=== PATIENT | female | born 1995 ===

== ENCOUNTER 2017-03-13 09:56 | Emergency (ER) | payer SELFPAY ==
[2017-03-13 10:22] VITALS: BP 120/67; PULSE 110; RESP 16; TEMP 99.5; O2SAT 100
--- NOTE | 2017-03-13 10:36 | ED PDOC ---
HPI: General Adult Chief Complaint (Provider): flu like symptoms, syncope History Per: Patient History/Exam Limitations: no limitations Onset/Duration Of Symptoms: Days (1) Current Symptoms Are (Timing): Still Present Severity: Moderate <Aleksandr Gomez III - Last Filed: 03/13/17 10:42> <Teresa Delacruz - Last Filed: 03/15/17 13:54> Time Seen by Provider: 03/13/17 10:11 Chief Complaint (Nursing): Syncope Additional Complaint(s): 21yo female c/o flu like symptoms including sore throat, headache, body pains and mild cough. Also states she "passed out" this morning due to the fever. Notes mild left chest pain when breathes deeply, mild cough, no hemoptysis, no edema, no leg pain, no SOB. (Aleksandr Gomez III) Past Medical History Reviewed: Historical Data, Nursing Documentation, Vital Signs - Medical History PMH: No Chronic Diseases - Surgical History Other surgeries: rhinoplasty - Family History Family History: States: Unknown Family Hx - Social History Current smoker - smoking cessation education provided: No <Aleksandr Gomez III - Last Filed: 03/13/17 10:42> <Teresa Delacruz - Last Filed: 03/15/17 13:54> Vital Signs: Last Vital Signs Temp 99.5 F 03/13/17 10:20 Pulse 110 H 03/13/17 10:20 Resp 16 03/13/17 10:20 BP 120/67 03/13/17 10:20 Pulse Ox 100 03/13/17 10:43 - Home Medications Home Medications: Ambulatory Orders Medication Instructions Recorded Ciprofloxacin [Cipro] 500 mg PO BID #14 tab 03/13/17 Ibuprofen [Motrin Tab] 600 mg PO Q6 PRN #15 tab 03/13/17 - Allergies Allergies/Adverse Reactions: Allergies Allergy/AdvReac Type Severity Reaction Status Date / Time No Known Allergies Allergy Verified 03/13/17 10:20 Review of Systems Review Of Systems: ROS cannot be obtained secondary to pt's inabilty to answer questions. Constitutional: Positive for: Chills, Malaise ENT: Positive for: Throat Pain. Negative for: Ear Discharge, Throat Swelling Cardiovascular: Positive for: Chest Pain. Negative for: Palpitations, Orthopnea Respiratory: Positive for: Cough. Negative for: Shortness of Breath, Hemoptysis Gastrointestinal: Positive for: Nausea. Negative for: Vomiting, Abdominal Pain , Diarrhea Genitourinary Female: Negative for: Dysuria, Hematuria Musculoskeletal: Positive for: Other (+body aches). Negative for: Neck Pain, Back Pain Skin: Negative for: Rash, Lesions, Jaundice Neurological: Positive for: Headache, Dizziness. Negative for: Weakness, Numbness Psych: Negative for: Anxiety <Aleksandr Gomez III - Last Filed: 03/13/17 10:42> Physical Exam - Reviewed Nursing Documentation Reviewed: Yes Vital Signs Reviewed: Yes - Physical Exam Appears: Positive for: Well, Non-toxic, No Acute Distress Head Exam: Positive for: ATRAUMATIC, NORMAL INSPECTION, NORMOCEPHALIC Skin: Positive for: Normal Color, Warm, DRY Eye Exam: Positive for: EOMI, Normal appearance, PERRL ENT: Positive for: TM Is/Are (unremarkable b/l), Pharyngeal Erythema. Negative for: Tonsillar Swelling Neck: Positive for: Normal, Painless ROM Cardiovascular/Chest: Positive for: Regular Rate, Rhythm Respiratory: Positive for: Normal Breath Sounds. Negative for: Wheezing, Respiratory Distress Gastrointestinal/Abdominal: Positive for: Bowel Sounds, Soft. Negative for: Tenderness, Guarding Back: Positive for: Normal Inspection. Negative for: L CVA Tenderness, R CVA Tenderness Extremity: Positive for: Normal ROM Neurologic/Psych: Positive for: Alert, Oriented. Negative for: Motor/Sensory Deficits <Aleksandr Gomez III - Last Filed: 03/13/17 10:42> - ECG O2 Sat by Pulse Oximetry: 100 <Aleksandr Gomez III - Last Filed: 03/13/17 10:42> - Laboratory Results Result Diagrams: 03/13/17 12:57 03/13/17 12:57 <Teresa Delacruz - Last Filed: 03/15/17 13:54> Medical Decision Making <Aleksandr Gomez III - Last Filed: 03/13/17 10:42> <Teresa Delacruz - Last Filed: 03/15/17 13:54> Medical Decision Making: Urine culture positive for lactobacillus with no sensitivity resulted. Patient was sent home on Cipro and given IV rocephin in ED. I spoke directly with patient who states she is feeling much better. I advised patient to follow up with primary doctor after completion of antibiotic course to have urine culture repeated to determine if infection has resolved. Patient verbalized understanding of the need for close follow up. All questions answered. (Teresa Delacruz) Disposition <Aleksandr Gomez III - Last Filed: 03/13/17 10:42> <Teresa Delacruz - Last Filed: 03/15/17 13:54> - Clinical Impression Clinical Impression: UTI (urinary tract infection) - Disposition Referrals: [facility] [Outside] Condition: STABLE Additional Instructions: Drink plenty of fluids, return to ER for any new or worsening symptoms. Prescriptions: Ciprofloxacin [Cipro] 500 mg PO BID #14 tab Ibuprofen [Motrin Tab] 600 mg PO Q6 PRN #15 tab PRN Reason: Pain, Moderate (4-7) Instructions: Urinary Tract Infection in Women (ED) Forms: [facility] School/Work Excuse
[2017-03-13 11:01] LABS: SQUAMOUS EPITHIAL 13 /hpf (0-5); URINE BACTERIA MOD (<OCC); URINE BILIRUBIN NEGATIVE (NEGATIVE); URINE BLOOD NEGATIVE (NEGATIVE); URINE CLARITY CLOUDY (Clear); URINE COLOR AMBER (YELLOW); URINE GLUCOSE (UA) NEG (Normal); URINE LEUKOCYTE ESTERASE LARGE Leu/uL (Negative); URINE NITRATE NEGATIVE (NEGATIVE); URINE PROTEIN 30 mg/dL (NEGATIVE)
[2017-03-13] MEDS ORDERED: Sodium Chloride 0.9% 1,000 ML IV STA (12:15)
[2017-03-13 13:12] LABS: BASO % 0.3 % (0.0-2.0); EOS % 0.1 % (0.0-4.0); HEMOGLOBIN 12.1 g/dL (12.0-16.0); LYMPH # 0.8 K/uL (1.0-4.3); MEAN CELL VOLUME 80.7 fl (81.0-99.0); MEAN CORPUSCULAR HEMOGLOBIN 25.8 pg (27.0-31.0); MEAN PLATELET VOLUME 8.1 fl (7.2-11.7); MONO # 0.8 K/uL (0.0-0.8); NEUT # 11.1 K/uL (1.8-7.0); NEUT % 87.6 % (50.0-75.0); PLATELET COUNT 276 K/uL (130-400); RED CELL DISTRIBUTION WIDTH 17.7 % (11.5-14.5); WHITE BLOOD COUNT 12.7 K/uL (4.8-10.8)
[2017-03-13 13:15] LABS: ALB/GLOB RATIO 1.1 (1.0-2.1); ALBUMIN 3.7 g/dL (3.5-5.0); ALT/SGPT 32 U/L (9-52); AST/SGOT 26 U/L (14-36); BLOOD UREA NITROGEN 11 mg/dl (7-17); CALCIUM 9.1 mg/dL (8.4-10.2); GFR AFRICAN-AMERICAN > 60; GFR NON-AFRICAN AMERICAN > 60
[2017-03-13 14:00] LABS: ANISOCYTOSIS SLIGHT; BASOPHIL 1 % (0-2); LYMPHOCYTE 7 % (20-50); MONOCYTE 4 % (0-10); NEUTROPHIL 88 % (42-75); OVALOCYTES SLIGHT; PLATELET ESTIMATE NORMAL (NORMAL); TOTAL CELLS COUNTED 100
[2017-03-13 14:01] LABS: HYPOCHROMIC SLIGHT; LARGE PLATELETS PRESENT; MICROCYTOSIS SLIGHT
--- NOTE | 2017-03-13 17:48 | CARD ---
APPROVED REPORT EKG Measurement Heart [id number] <Conclusion> Sinus tachycardia Otherwise normal ECG
== END 2017-03-13 17:33 | disposition home or self-care (01) ==
LOC: H.ER 09:56
DX: N39.0 Urinary tract infection, site not specified (principal)
CPT/HCPCS: 80053; 81003; 81025; 85025; 87070; 87086; 87430; 87804; 93005; 96372; 99285; J0696; J1885; J7040